=== PATIENT | male | born 1950 | race Caucasian/White ===

== ENCOUNTER 2021-05-20 13:19 | Observation (INO) | payer OTHER ==
[~2021-05-20] VITALS: Ht 180.3 cm; Wt 94.6 kg
[~2021-05-20 13:19] MED LIST: HYDACE5 PO
[2021-05-20 14:28] LABS: BASOPHILS ABSOLUTE AUTO 0.02 K/mm3 (0.00-0.23); BASOPHILS PERCENT AUTO 0 % (0-2); EOSINOPHILS ABSOLUTE AUTO 0.02 K/mm3 (0.00-0.68); EOSINOPHILS PERCENT AUTO 0 % (0-6); Hemoglobin 15.7 g/dL (13.5-17.5); IMMATURE GRAN ABSOLUTE AUTO 0.06 K/mm3 (0.00-0.10); IMMATURE GRAN PERCENT AUTO 0 % (0-1); LYMPHOCYTES ABSOLUTE AUTO 1.21 K/mm3 (0.84-5.20); LYMPHOCYTES PERCENT AUTO 9 % (21-46); MONOCYTES ABSOLUTE AUTO 0.97 K/mm3 (0.16-1.47); MONOCYTES PERCENT AUTO 7 % (4-13); Mean Corpuscular HGB 30.7 pg (26.0-34.0); Mean Corpuscular HGB Conc 34.1 g/dL (31.5-36.5); Mean Corpuscular Volume 90 fL (80-100); Mean Platelet Volume 10.6 fL (9.1-12.4); NEUTROPHILS ABSOLUTE AUTO 11.66 K/mm3 (1.96-9.15); NEUTROPHILS PERCENT AUTO 84 % (41-73); Platelet Count 292 K/mm3 (150-400); RDW Coefficient Variation 13.2 % (11.7-14.2); RDW Standard Deviation 43.7 fL (35.1-46.3); Red Blood Cell Count 5.12 M/mm3 (4.30-5.90); White Blood Cell Count 13.94 K/mm3 (4.00-11.30)
[2021-05-20 14:51] LABS: Alanine Aminotransfer (ALT/SGP 33 U/L (12-78); Albumin, Blood 3.8 g/dL (3.4-5.0); Albumin/Globulin Ratio 0.8 (0.8-1.8); Alk Phos 46 U/L (50-136); Anion Gap 8 mmol/L (6-16); Aspartate Aminotrans (AST/SGOT 25 U/L (12-37); Bilirubin, Total 0.5 mg/dL (0.1-1.0); Blood Urea Nitrogen 23 mg/dL (8-24); CO2, Blood 26 mmol/L (21-32); Calcium, Blood 9.3 mg/dL (8.5-10.1); Chloride, Blood 105 mmol/L (98-108); Creatinine, Blood 0.89 mg/dL (0.60-1.20); Globulin, Blood 4.7 g/dL (2.2-4.0); Glomerular Filtration Rate >60 (60-); Glucose, Blood 117 mg/dL (70-99); Potassium, Blood 3.7 mmol/L (3.5-5.5); Sodium, Blood 139 mmol/L (136-145); Total Protein, Blood 8.5 g/dL (6.4-8.2)
[2021-05-20 17:11] LABS: Source, Urine Clean Catch
[2021-05-20 17:18] LABS: Appearance, Urine Clear (Clear); Bilirubin, Urine Neg (Neg); Blood, Urine Neg (Neg); Color, Urine Yellow (P-Yellow); Glucose Qualitative, Urine Neg (Neg); Ketones, Urine 1+ (Neg); Leukocyte Esterase, Urine Neg (Neg); Nitrite, Urine Neg (Neg); Protein, Urine 2+ (Neg); Specific Gravity, Urine 1.025 (1.003-1.022); Urobilinogen, Urine 1+ (Normal)
[2021-05-20 17:33] LABS: Bacteria Few /hpf; Mucus Mod (0-Heavy); Red Blood Cells, Urine 0-2 /hpf (0-2); Squamous Epithelial Cells Few /hpf (Few)
--- NOTE | 2021-05-20 20:22 | NUR ---
RECEIVED PT FROM ED AND REPORT FROM MIKE. PT A&O X4. ARRIVED IN A WHEELCHAIR IS ABLE TO AMBULATE ON HIS OWN. REPORTS PAIN 3/10 ON PAIN SCALE AND REPORTS THAT TOLERABLE. ARRIVED WITH WHO WILL BE GOING HOME FOR THE NIGHT.
[2021-05-21 00:31] LABS: SARS-Cov-2 (COVID-19) PCR, MMC NEGATIVE (NEGATIVE)
[2021-05-21] MEDS ORDERED: EUTHYROX50 MCG PO (04:28)
[2021-05-21] MEDS ORDERED: Flonase 0.05% N16 GM (04:28)
[2021-05-21] MEDS ORDERED: ALBU90OI (04:28)
[2021-05-21] MEDS ORDERED: Amlodipine Bes2.5 MG PO (04:28)
[2021-05-21 04:41] LABS: Hematocrit 41.3 % (37.0-53.0); Mean Corpuscular HGB 30.6 pg (26.0-34.0); Mean Corpuscular HGB Conc 33.9 g/dL (31.5-36.5); Mean Corpuscular Volume 90 fL (80-100); Mean Platelet Volume 10.3 fL (9.1-12.4); Platelet Count 235 K/mm3 (150-400); RDW Coefficient Variation 13.4 % (11.7-14.2); RDW Standard Deviation 44.7 fL (35.1-46.3); Red Blood Cell Count 4.58 M/mm3 (4.30-5.90); White Blood Cell Count 9.45 K/mm3 (4.00-11.30)
--- NOTE | 2021-05-21 04:59 | NUR ---
SHIFT SUMMARY PT ADMITTED FOR ACUTE NESHA. REPORTS UPPER ABD PAIN AND WAS TREATED PER EMAR. DECLINES N/V AT THIS TIME. PT HAS BEEN NPO SINCE MIDNIGHT FOR EXPECTED SURGERY TODAY. PT IS A&O X4 AND INDEPENDENT IN ROOM. PT CALLS APPROPRIATELY AND CALL LIGHT IS WITHIN REACH. PT APPEARS TO HAVE RESTED COMFORTABLY IN HIS BED MOST OF THE SHIFT.
[2021-05-21 05:02] LABS: Anion Gap 5 mmol/L (6-16); Blood Urea Nitrogen 17 mg/dL (8-24); Bun/Creatinine Ratio 17.9 (12.0-20.0); CO2, Blood 26 mmol/L (21-32); Calcium, Blood 8.5 mg/dL (8.5-10.1); Chloride, Blood 109 mmol/L (98-108); Creatinine, Blood 0.95 mg/dL (0.60-1.20); Glomerular Filtration Rate >60 (60-); Glucose, Blood 106 mg/dL (70-99); Potassium, Blood 3.5 mmol/L (3.5-5.5); Sodium, Blood 140 mmol/L (136-145)
--- NOTE | 2021-05-21 14:14 | NUR ---
TO DAY SURGERY VIA [facility]
--- NOTE | 2021-05-21 14:27 | NUR ---
History, Chart, Medications and Allergies reviewed before start of procedure. Lungs clear T/O to Auscultation. Pre-Op teaching done. Pt verbalizes understanding.
--- NOTE | 2021-05-21 16:08 | NUR ---
05/21/21 1607 Kimberly Biggs PT ON SCHEDULED ANTIBIOTICS. UNASYN 3 GM GIVEN AT 1211 ON 05/21. ZOSYN 3.375 MG GIVEN 2 1753 ON 05/20.
--- NOTE | 2021-05-21 18:00 | NUR ---
POST OP ARRIVES TO ROOM ON GOURNEY & STANDS TO TRANSFER SELF TO BED w/ STANDBY ASSIST. DENIES PAIN, SOB, OR CP. ABD SOFT, SLIGHTLY DISTENDED. LAP SITES x 4 w/ SCANT SS DRNG TO UPPER SITES. VSS. DENIES N/V SO CLEAR LQ's GIVEN. LUNGS DIM ON 4L NC, WEANED TO 3L.
--- NOTE | 2021-05-22 06:37 | NUR ---
SHIFT SUMMARY POD1 LAP NESHA, 4 LAPS c STERI STRIPS CDI, PAIN MANAGED PER EMAR, A/O X4, EDUCATED ON SI USE, TITRATED BACK TO ROOM AIR. NO ACUTE EVENTS THIS SHIFT. CALL LIGHT IN REACH, WILL CTM AND REPORT TO DAY RN.
[2021-05-22] MEDS ORDERED: Acetaminophen650 M1 PO (13:13)
[2021-05-22] MEDS ORDERED: DOCU100 PO (13:13)
[2021-05-22] MEDS ORDERED: Norco 5-325 Ta1 EACH PO (13:23)
--- NOTE | 2021-05-22 13:45 | NUR ---
DISCHARGE EATING, DRINKING, VOIDING, & PASSING GAS. BOWEL CARE GIVEN NO BM RECENTLY. VERBAL ORDER FROM DR YOGI ARGUETA TO D/C. LAP SITES WNL, SLIGHT BRUISING TO UMBILICUS. SCRIPT FOR NORCO GIVEN. AT BEDSIDE FOR INSTRUCTIONS. ESCORTED OUT VIA W/C.
== END 2021-05-22 14:23 | disposition home or self-care (01) ==
LOC: ER 13:19 → SURS 13:20 → ER 17:46 → SURS 17:46
PROVIDERS: Physician Assistant; ADMIT Internal Medicine
DX: K80.00 Calculus of gallbladder with acute cholecystitis without obstruction (principal); K82.A1 Gangrene of gallbladder in cholecystitis; K66.0 Peritoneal adhesions (postprocedural) (postinfection); K63.89 Other specified diseases of intestine; K56.2 Volvulus; I10 Essential (primary) hypertension; E78.00 Pure hypercholesterolemia, unspecified; M10.9 Gout, unspecified; E03.9 Hypothyroidism, unspecified; J45.909 Unspecified asthma, uncomplicated; J32.9 Chronic sinusitis, unspecified; Z88.8 Allergy status to other drugs, medicaments and biological substances; Z20.822 Contact with and (suspected) exposure to COVID-19
CPT/HCPCS: 36415; 74300; 76705; 80048; 80053; 81001; 83690; 85025; 85027; 88304; 93005; 93010; 96365; 96366; 96367; 96372; 96375; 96376; 99285-25; A9270; C1729; C9113; G0378; J0295; J1100; J1650; J1885; J2250; J2270; J2370; J2405; J2543; J2704; J3010; J7030; J7120; U0004